=== PATIENT | male | born 1995 | race Two or more races ===

== ENCOUNTER 2016-08-13 12:11 | Emergency (ER) | payer OTHER ==
--- NOTE | ~2016-08-13 | CR127 ---
[facility] A Service of [facility] RADIOLOGY TEXT RESULTS PATIENT: LEONARDA QUINTANA LOCATION: [facility] : [birth year] UNIT #: [id number] AGE: [address]: BETINA DIAZ SEX: M ORDER DR: [id number] [facility]. [place], [place] [address] [id number] P MR#: [id number] Acc #: [id number] NAME: LEONARDA QUINTANA : 1995 SEX: M STUDY DATE/TIME: 08/13/2016 12:49 UNIT: TX ROOM: STUDY DESCRIPTION: CR Foot Complete Min 3 View Rt Attending Physician: Betina Diaz Aprn Ordering Physician: [facility] MEDICAL IMAGING REPORT This report is preliminary unless electronic signature is present EXAM Right foot HISTORY Right foot pain after stepping on nail today. FINDINGS The tarsal, metatarsal, and phalangeal elements are all anatomically normal in position and alignment. There are no articular defects. No fractures or radiopaque foreign bodies in the soft tissues are apparent. IMPRESSION Normal foot. Dictated by... Jameel Horowitz M.D. THIS IS AN ELECTRONICALLY VERIFIED REPORT Jameel Horowitz M.D. at 08/13/2016 3:33 PM MARIAM/sterling TD: 08/13/2016 14:18 JOB #: [id number] MEDICAL IMAGING REPORT Page 1 of 1 COPY
== END 2016-08-13 15:38 | disposition home or self-care (01) ==
LOC: CED 12:11 → CFTX 12:11
DX: S91.332A Puncture wound without foreign body, left foot, initial encounter (principal); Z23 Encounter for immunization; W22.8XXA Striking against or struck by other objects, initial encounter; Y92.009 Unspecified place in unspecified non-institutional (private) residence as the place of occurrence of the external cause
CPT/HCPCS: 73630; 90471; 90715; 99283